=== PATIENT | female | born 1990 | race Caucasian/White ===

== ENCOUNTER 2017-03-31 11:02 | Outpatient (CLI) | payer MEDICAID ==
[~2017-03-31] VITALS: Ht 153.7 cm; Wt 70.5 kg
[2017-03-31 11:07] VITALS: Ht 153.7 cm; Wt 70.5 kg
[2017-03-31] MEDS ORDERED: PRENAT PO (11:09)
[2017-03-31] MEDS ORDERED: FERR325C PO (11:10)
[2017-03-31 11:17] VITALS: BP 102/58; PULSE 109; RESP 20
--- NOTE | 2017-03-31 11:39 | RADRPT ---
PROCEDURE: US OB biophysical profile. CLINICAL INDICATION: decreased movements, labor TECHNIQUE: Multiple sonographic images of the pelvis were obtained. The images were reviewed on a PACS workstation. COMPARISON: No prior studies are available for comparison. FINDINGS: There is a single viable intrauterine gestation. Cardiac activity is present with 142 beats per min [place]. There is a vertex presentation. The placenta is anterior. There is no evidence of placental abruption. There is a normal amount of amniotic fluid with an TREVER = 11.7 cm. Biophysical profile: movement 2/2 tone 2/2. breathing 2/2 TREVER 2/2 Total 03/28 RPTAT: AA . IMPRESSION: Normal biophysical profile. . .Kamlesh Villa MD, Date Time Electronically viewed and signed by .Kamlesh Villa MD, MD on 03/31/2017 11:38 .S/
[2017-03-31] MEDS ORDERED: TERBUTALINE 1 MG/ML INJ SC PRN (12:00)
[2017-03-31 12:17] LABS: ADD UMIC YES; UR ASCORBIC ACID 20 mg/dL (NEGATIVE); UR BACTERIA FEW /HPF (NONE SEEN); UR BILIRUBIN (Dip) NEGATIVE (NEGATIVE); UR BLOOD (Dip) NEGATIVE (NEGATIVE); UR CLARITY CLOUDY (CLEAR); UR COLOR YELLOW (YELLOW); UR GLUCOSE (Dip) NEGATIVE (NEGATIVE); UR KETONES (Dip) NEGATIVE (NEGATIVE); UR LEUKOCYTE ESTERASE (Dip) NEGATIVE Leu/ul (NEGATIVE); UR MUCUS FEW /HPF (NONE SEEN); UR NITRITE (Dip) NEGATIVE (NEGATIVE); UR RBC 1 /HPF (0-5); UR SPECIFIC GRAVITY (Dip) 1.012 (1.003-1.030); UR SQUAMOUS EPITHELIAL CELL MANY /HPF (FEW); UR TOTAL PROTEIN (Dip) NEGATIVE (NEGATIVE); UR UROBILINOGEN (Dip) NEGATIVE (NEGATIVE)
--- NOTE | 2017-03-31 13:34 | RADRPT ---
PROCEDURE: Limited obstetric ultrasound CLINICAL INDICATION: Pain TECHNIQUE: Multiple transverse and longitudinal grayscale images of the pelvis were obtained camejo sabdominally and transvaginally.. COMPARISON: same day FINDINGS: The cervix has a length of 3.8 cm. There is a trace amount of fluid within the cervix. RPTAT: AA IMPRESSION: Cervix length measures 3.8 cm. .Kamlesh Villa MD, MD Date Time Electronically viewed and signed by .Kamlesh Villa MD, on 03/31/2017 13:34 .S/
[2017-03-31 13:40] LABS: BASOPHILS % 0.3 % (0.0-2.0); EOSINOPHILS # 0.1 10^3/ul (0.0-0.5); EOSINOPHILS % 0.7 % (0.0-7.0); HEMATOCRIT 38.4 % (37.0-47.0); HEMOGLOBIN 12.8 g/dl (12.0-16.0); LYMPHOCYTES # 2.2 10^3/ul (0.8-2.9); LYMPHOCYTES % 23.7 % (15.0-51.0); MEAN CORPUSCULAR HEMOGLOBIN 29.8 pg (29.0-33.0); MEAN CORPUSCULAR HGB CONC 33.3 g/dl (32.0-37.0); MEAN CORPUSCULAR VOLUME 89.5 fl (82.0-101.0); MEAN PLATELET VOLUME 10.3 fl (7.4-10.4); MONOCYTE # 0.8 10^3/ul (0.3-0.9); MONOCYTES % 8.8 % (0.0-11.0); NEUTROPHIL # 6.1 10^3/ul (1.6-7.5); NEUTROPHILS % 63.9 % (39.0-77.0); PLATELET COUNT 226 10^3/UL (140-415); RED BLOOD COUNT 4.29 10^6/ul (4.20-5.40); RED CELL DISTRIBUTION WIDTH 14.9 % (11.5-14.5); WHITE BLOOD COUNT 9.5 10^3/ul (4.8-10.8)
[2017-03-31] MEDS ORDERED: LACTATED RINGER'S 1,000 ML IV* SCH (14:00)
--- NOTE | 2017-03-31 14:48 | PN ---
Triage Information Date/Time March 31, 2017 Reason for visit: DFM Weeks of Gestation 32 weeks and 1 day /Para 1 para 0 Diabetes: none Hypertention: none Additional information 17 from clinic with patient complaining of decreased movement and onset of uterine contraction night prior to admission Patient received IV hydration and subcutaneous terbutaline with total removal of her symptoms Objective Vital Signs Date Time Temp Pulse Resp B/P Pulse Ox O2 Delivery O2 Flow Rate FiO2 03/31/17 11:17 98.2 109 20 102/58 97 Room Air Heart Rate: 140's Heart Rate Comments Reactive Contractions: 6-10 Minutes Apart Exam Cervix is long and closed Results/Medications Result Diagram: 03/31/17 1330 Results 24 hrs Laboratory Tests Test 03/31/17 11:14 03/31/17 13:30 Urine Color YELLOW Urine Clarity CLOUDY A Urine pH 7.0 Urine Specific [place] 1.012 Urine Ketones NEGATIVE Urine Nitrite NEGATIVE Urine Bilirubin NEGATIVE Urine Urobilinogen NEGATIVE Urine Leukocyte Esterase NEGATIVE Urine Microscopic RBC 1 Urine Microscopic WBC 3 Urine Squamous Epithelial Cells MANY A Urine Bacteria FEW A Urine Mucus FEW A Urine Hemoglobin NEGATIVE Urine Glucose NEGATIVE Urine Total Protein NEGATIVE White Blood Count 9.5 Red Blood Count 4.29 Hemoglobin 12.8 Hematocrit 38.4 Mean Corpuscular Volume 89.5 Mean Corpuscular Hemoglobin 29.8 Mean Corpuscular Hemoglobin Concent 33.3 Red Cell Distribution Width 14.9 H Platelet Count 226 Mean Platelet Volume 10.3 Neutrophils % 63.9 Lymphocytes % 23.7 Monocytes % 8.8 Eosinophils % 0.7 Basophils % 0.3 Nucleated Red Blood Cells % 0.0 Neutrophils # 6.1 Lymphocytes # 2.2 Monocytes # 0.8 Eosinophils # 0.1 Basophils # 0.0 Nucleated Red Blood Cells # 0.0 Medications Current Medications Terbutaline Sulfate 0.25 mg 0.25 mg PRN PRN SC CONTRACTION Last administered on 03/31/17t 13:10; Admin Dose 0.25 MG; Start 03/31/17 at 12:00 Lactated Ringer's (Lr) 1,000 ml @ 125 mls/hr Q8H IV* ; Start 03/31/17 at 14:00 Imaging Results Cervix length measures 3.8 cm. Biophysical profile: movement 2/2 tone 2/2. breathing 2/2 TREVER 2/2 Total 8/8 RPTAT: AA . IMPRESSION: Normal biophysical profile. Disposition: Discharge Assessment/Plan After receiving subcutaneous terbutaline and IV hydration, contractions totally stopped Will DC patient home on bed and pelvic rest To clinic as scheduled Patient was recommended if the symptoms come back to return to hospital immediately GM MCKEE MD Mar 31, 2017 14:48
[2017-03-31 15:12] LABS: BARBITURATES Negative (NEGATIVE); BENZODIAZEPINES Negative (NEGATIVE); CANNABINOIDS Negative (NEGATIVE); COCAINE Negative (NEGATIVE); OPIATES Negative (NEGATIVE)
--- NOTE | 2017-03-31 15:21 | TRIAGE ---
OB Triage Datetime Report Generated by CPN: 03/31/2017 15:21 Datetime: 03/31/2017 14:51 Stage of : OB Triage Datetime: 03/31/2017 14:28 Labor Evaluation Frequency: IRREG Monitor Mode: External Duration (sec)2399: 50-70 Quality: Mild Pattern: Normal: <= 5 Contractions in 10 Minutes Resting Tone [place]: Relaxed Contraction Comments: NST REACTIVE FOR GESTATIONAL AGE Heart Rate FHR Baseline Rate: 145 Monitor Mode: External US Variability: Moderate 6-25 bpm Accelerations: 15X15 Decelerations: None Category: Category I Datetime: 03/31/2017 13:59 Vaginal Exam Membrane Status: Intact Datetime: 03/31/2017 12:58 Labor Evaluation Frequency: 0 Monitor Mode: External Duration (sec)2399: 0 Pattern: Normal: <= 5 Contractions in 10 Minutes Heart Rate FHR Baseline Rate: 135 Monitor Mode: External US Variability: Moderate 6-25 bpm Accelerations: 15X15 Decelerations: None Category: Category I Datetime: 03/31/2017 11:59 Labor Evaluation Frequency: IRREG Monitor Mode: External Duration (sec)2399: 50-80 Quality: Mild Pattern: Normal: <= 5 Contractions in 10 Minutes Resting Tone [place]: Relaxed Heart Rate FHR Baseline Rate: 145 Monitor Mode: External US Variability: Moderate 6-25 bpm Accelerations: 15X15 Decelerations: None Category: Category I Datetime: 03/31/2017 11:21 Stage of : OB Triage Assessment Type: Triage Maternal Assessment Level of Consciousness: Fully Conscious DTR's/Clonus: DTRs 2+; No Clonus Headache: Denies Blurred Vision: No Respiratory Effort: Unlabored; Regular Rhythm; Equal Expansion Breath Sounds, Left: Clear and Equal Breath Sounds, Right: Clear and Equal Nausea/Vomiting: Denies RUQ Epigastric Pain: Denies Lower Extremities Edema: None Degree: None Upper Extremities Edema: None Degree: None Facial Edema: None Temperature Route: Axillary Fall Risk Assessment History of Falling: (0) No Secondary Diagnosis: (0) No Ambulatory Aid: (0) Bedrest/Nurse Assist IV Therapy: (0) No Gait: (0) Normal/Bedrest/Immobile Mental Status: (0) Oriented to Own Ability Fall Score: 0 Fall Risk Score Definition: No Risk: No action required Pain Assessment Pain Scale: 7 Pain Presence: Intermittent Pain Type: Contraction Pain Location: Abdomen; Back Pain Goal: 2 Pain Relief Measures: Comfort Measures Datetime: 03/31/2017 11:19 Time of Arrival: 03/31/2017 10:55 EGA: 32.1 Arrived By: Ambulatory Arrived From: Dr. Hanson Chief Complaint: R/O PTL; DECREASED FM Vaginal Bleeding: None Vaginal Discharge: Denies Recent Sexual Intercouse: Denies Time Provider Notified: 03/31/2017 11:54 Provider Notified: DR. BEE Initial Plan: NST AND CALL
== END 2017-03-31 15:22 | disposition home or self-care (01) ==
LOC: OBT 11:02 → L-D 11:04 → OBT 15:22
PROVIDERS: ATTEND Obstetrics & Gynecology
DX: O36.8130 Decreased fetal movements, third trimester, not applicable or unspecified (principal); Z3A.32 32 weeks gestation of pregnancy
CPT/HCPCS: 36415; 76817; 76818; 80307; 81001; 85025; 96360; 96361; 96372; J3105; J7120; Z7500; G0463

== ENCOUNTER 2017-05-07 00:31 | Outpatient (CLI) | payer MEDICAID ==
[~2017-05-07] VITALS: Ht 154.9 cm; Wt 74.5 kg
[~2017-05-07 00:31] MED LIST: FERR325C PO; PRENAT PO
[2017-05-07 00:51] VITALS: Ht 154.9 cm; Wt 74.5 kg
[2017-05-07 01:26] VITALS: BP 106/57; PULSE 96; RESP 18
[2017-05-07] MEDS ORDERED: CALC-143 PO (02:26)
[2017-05-07 03:08] LABS: ADD UMIC YES; UR AMORPHOUS CRYSTAL FEW /HPF (NONE SEEN); UR ASCORBIC ACID 20 mg/dL (NEGATIVE); UR BACTERIA MANY /HPF (NONE SEEN); UR BILIRUBIN (Dip) NEGATIVE (NEGATIVE); UR BLOOD (Dip) NEGATIVE (NEGATIVE); UR CLARITY CLOUDY (CLEAR); UR COLOR YELLOW (YELLOW); UR GLUCOSE (Dip) 1+ mg/dL (NEGATIVE); UR KETONES (Dip) NEGATIVE (NEGATIVE); UR LEUKOCYTE ESTERASE (Dip) NEGATIVE Leu/ul (NEGATIVE); UR MUCUS FEW /HPF (NONE SEEN); UR NITRITE (Dip) NEGATIVE (NEGATIVE); UR RBC 1 /HPF (0-5); UR SPECIFIC GRAVITY (Dip) 1.012 (1.003-1.030); UR SQUAMOUS EPITHELIAL CELL MANY /HPF (FEW); UR TOTAL PROTEIN (Dip) NEGATIVE (NEGATIVE); UR UROBILINOGEN (Dip) NEGATIVE (NEGATIVE)
--- NOTE | 2017-05-07 03:56 | RADRPT ---
PROCEDURE: OB ultrasound for biophysical profile CLINICAL INDICATION: labor. Biophysical profile. TECHNIQUE: Multiple sonographic images of the pelvis were obtained. Transabdominal view of the gr avid uterus are available for review. The images were reviewed on a PACS workstation. COMPARISON: 05/04/2017 FINDINGS: There is a single live intrauterine gestation. The fetus in the cephalic presentation. The ca rdiac motion measures 140 beats per minute. The placenta is anterior, grade II. The estimated gestational age is 37 weeks, 3 days. The EDDIE is 05/25/2017. breathing movement = 2/2 tone = 2/2 motion = 2/2 TREVER = 2/2 TREVER = 11.8 cm Single live intrauterine with cardiac activity. IMPRESSION: 1. Single viable intrauterine gestation. 2. Biophysical profile = /8. 3. TREVER = 11.8 cm. RPTAT: HCNS Physician Bryn Date Time Electronically viewed and signed by Physician Bryn on 05/07/2017 03:55 CS/
[2017-05-07 04:04] LABS: BASOPHILS % 0.4 % (0.0-2.0); EOSINOPHILS # 0.1 10^3/ul (0.0-0.5); EOSINOPHILS % 1.4 % (0.0-7.0); HEMATOCRIT 36.4 % (37.0-47.0); HEMOGLOBIN 12.1 g/dl (12.0-16.0); LYMPHOCYTES # 1.7 10^3/ul (0.8-2.9); LYMPHOCYTES % 24.5 % (15.0-51.0); MEAN CORPUSCULAR HEMOGLOBIN 29.7 pg (29.0-33.0); MEAN CORPUSCULAR HGB CONC 33.2 g/dl (32.0-37.0); MEAN CORPUSCULAR VOLUME 89.2 fl (82.0-101.0); MONOCYTE # 0.8 10^3/ul (0.3-0.9); MONOCYTES % 11.5 % (0.0-11.0); NEUTROPHIL # 4.3 10^3/ul (1.6-7.5); NEUTROPHILS % 60.5 % (39.0-77.0); PLATELET COUNT 204 10^3/UL (140-415); RED BLOOD COUNT 4.08 10^6/ul (4.20-5.40); WHITE BLOOD COUNT 7.1 10^3/ul (4.8-10.8)
--- NOTE | 2017-05-07 04:14 | PN ---
Triage Information Date/Time Reason for visit: Complaining of contractions/leaking fluid and generalized itching Weeks of Gestation 37 weeks and 3 days of gestation /Para 1 para 0 Diabetes: none Hypertention: none Objective Vital Signs Date Time Temp Pulse Resp B/P Pulse Ox O2 Delivery O2 Flow Rate FiO2 05/07/17 01:26 98.1 96 18 106/57 Room Air Heart Rate: 140's Heart Rate Comments Reactive Contractions: None Results/Medications Result Diagram: 05/07/17 0320 Results 24 hrs Laboratory Tests Test 05/07/17 02:00 05/07/17 03:20 Urine Color YELLOW Urine Clarity CLOUDY A Urine pH 7.0 Urine Specific [place] 1.012 Urine Ketones NEGATIVE Urine Nitrite NEGATIVE Urine Bilirubin NEGATIVE Urine Urobilinogen NEGATIVE Urine Leukocyte Esterase NEGATIVE Urine Microscopic RBC 1 Urine Microscopic WBC 1 Urine Squamous Epithelial Cells MANY A Urine Amorphous Crystals FEW A Urine Bacteria MANY A Urine Mucus FEW A Urine Hemoglobin NEGATIVE Urine Glucose 1+ H Urine Total Protein NEGATIVE White Blood Count 7.1 # Red Blood Count 4.08 L Hemoglobin 12.1 Hematocrit 36.4 L Mean Corpuscular Volume 89.2 Mean Corpuscular Hemoglobin 29.7 Mean Corpuscular Hemoglobin Concent 33.2 Red Cell Distribution Width 15.0 H Platelet Count 204 Mean Platelet Volume 11.0 H Neutrophils % 60.5 Lymphocytes % 24.5 Monocytes % 11.5 H Eosinophils % 1.4 Basophils % 0.4 Nucleated Red Blood Cells % 0.0 Neutrophils # 4.3 Lymphocytes # 1.7 Monocytes # 0.8 Eosinophils # 0.1 Basophils # 0.0 Nucleated Red Blood Cells # 0.0 Imaging Results PROCEDURE: OB ultrasound for biophysical profile CLINICAL INDICATION: labor. Biophysical profile. TECHNIQUE: Multiple sonographic images of the pelvis were obtained. Transabdominal view of the gravid uterus are available for review. The images were reviewed on a PACS workstation. COMPARISON: 05/04/2017 FINDINGS: There is a single live intrauterine gestation. The fetus in the cephalic presentation. The cardiac motion measures 140 beats per minute. The placenta is anterior, grade II. The estimated gestational age is 37 weeks, 3 days. The EDDIE is 05/25/2017. breathing movement = 2/2 tone = 2/2 motion = 2/2 TREVER = 2/2 TREVER = 11.8 cm Single live intrauterine with cardiac activity. IMPRESSION: 1. Single viable intrauterine gestation. 2. Biophysical profile = 8/8. 3. TREVER = 11.8 cm. RPTAT: HCNS Max Cruz Physician Date Time Electronically viewed and signed by Max Cruz Physician on 05/07/2017 03: 55 CS/ CC: CHARLOTTE BUCIO MD Disposition: Discharge Assessment/Plan Patient instructed to use Benadryl [id number] for itching She was counseled to follow-up with her [facility] on Monday CHARLOTTE BUCIO MD May 07, 2017 04:14
[2017-05-07 04:33] LABS: BILIRUBIN,INDIRECT 0.1 mg/dl (0-1.1); BILIRUBIN,TOTAL 0.1 mg/dl (0.2-1.3); CALCIUM 9.7 mg/dl (8.4-10.2); CREATININE 0.56 mg/dl (0.44-1.00); POTASSIUM 3.8 mmol/L (3.5-5.1)
--- NOTE | 2017-05-07 07:27 | TRIAGE ---
OB Triage Datetime Report Generated by CPN: 05/07/2017 07:27 Datetime: 05/07/2017 00:30 Time of Arrival: 05/07/2017 00:20 EGA: 37.3 Arrived By: Wheelchair Arrived From: Home Chief Complaint: UC's, Low abdominal pain, itchy. Movement: Present Contractions: Denies/Absent Rupture of Membranes: Denies Vaginal Bleeding: None Vaginal Discharge: Denies Recent Sexual Intercouse: Denies Abdominal Trauma: Not Applicable Initial Plan: EFM X2, BPP, CBC, CMP, UA, bile acids Datetime: 03/31/2017 11:21 Fall Risk Assessment Fall Score: 0 Fall Risk Score Definition: No Risk: No action required Datetime: 03/31/2017 11:19 EGA: 32.1
== END 2017-05-07 04:35 | disposition home or self-care (01) ==
LOC: OBT 00:31 → L-D 00:32 → OBT 04:35
PROVIDERS: ATTEND Obstetrics & Gynecology
DX: O26.893 Other specified pregnancy related conditions, third trimester (principal); Z3A.37 37 weeks gestation of pregnancy; R10.9 Unspecified abdominal pain
CPT/HCPCS: 76818; 80053; 81001; 83789; 85025; Z7500; G0463

== ENCOUNTER 2017-05-20 01:00 | Outpatient (CLI) | payer MEDICAID ==
[~2017-05-20] VITALS: Ht 156.2 cm; Wt 75.4 kg
[~2017-05-20 01:00] MED LIST changes: +CALC-143 PO
[2017-05-20 01:13] VITALS: Ht 156.2 cm; Wt 75.4 kg
[2017-05-20 01:14] VITALS: BP 112/61; PULSE 105; RESP 20
--- NOTE | 2017-05-20 02:50 | RADRPT ---
PROCEDURE: Limited OB ultrasound CLINICAL INDICATION: Rupture of membranes. TECHNIQUE: Sonographic evaluation to assess the amniotic fluid index was performed. Transabdomina l imaging of the gravid uterus was performed. COMPARISON: 05/07/2017. FINDINGS: A single live intrauterine in cephalic presentation is identified. The heart rate me asures 179 bpm. The amniotic -fluid index equals approximately 9.3 cm, within normal limits. There i s an anterior placenta, grade 3. IMPRESSION: 1. Amniotic fluid index: 9.3 cm. RPTAT: HTAR .Kamlesh Cullen MD, Date Time Electronically viewed and signed by .Kamlesh Cullen MD, on 05/20/2017 02:50 .R/
--- NOTE | 2017-05-20 05:13 | PN ---
Triage Information Date/Time Reason for visit: Weeks of Gestation 39w 2d /Para Additional information Patient with N/V, LOF, UCs Objective Vital Signs Date Time Temp Pulse Resp B/P Pulse Ox O2 Delivery O2 Flow Rate FiO2 05/20/17 01:14 97.9 105 20 112/61 Room Air Heart Rate Comments reactive Contractions: 6-10 Minutes Apart Exam SVE: 0/40/-3 ROM plus negative Results/Medications Results 24 hrs Laboratory Tests Test 05/20/17 01:00 Membranes Rupture NEGATIVE Imaging Results TREVER 9.3cm Disposition: Discharge Assessment/Plan 26 y/o at 39w 2d with N/V, UCs, LOF -no e/o SROM or active labor -rx for zofran given -labor precautions -f/u OB MOHINI SUERO May 20, 2017 05:13
--- NOTE | 2017-05-20 05:41 | TRIAGE ---
OB Triage Datetime Report Generated by CPN: 05/20/2017 05:41 Datetime: 05/20/2017 04:44 Stage of : OB Triage Labor Evaluation Frequency: occasional Monitor Mode: External Duration (sec)2399: 40-120 Quality: Mild Resting Tone [place]: Relaxed Heart Rate FHR Baseline Rate: 140 Monitor Mode: External US Variability: Moderate 6-25 bpm Accelerations: 15X15 Decelerations: None Category: Category I Datetime: 05/20/2017 03:16 Stage of : OB Triage Datetime: 05/20/2017 03:01 Stage of : OB Triage Labor Evaluation Frequency: x3 Monitor Mode: External Duration (sec)2399: 80-140 Quality: Mild Resting Tone [place]: Relaxed Heart Rate FHR Baseline Rate: 140 Monitor Mode: External US Variability: Marked >25 bpm Accelerations: 15X15 Decelerations: Variable Category: Category II Datetime: 05/20/2017 02:07 Stage of : OB Triage Maternal Assessment Level of Consciousness: Fully Conscious DTR's/Clonus: DTRs 2+; No Clonus Headache: Denies Breath Sounds, Left: Clear and Equal Breath Sounds, Right: Clear and Equal Nausea/Vomiting: Denies RUQ Epigastric Pain: Denies Labor Evaluation Frequency: NONE Monitor Mode: External Heart Rate FHR Baseline Rate: 150 Monitor Mode: External US Variability: Moderate 6-25 bpm Accelerations: 15X15 Decelerations: None Category: Category I Pain Assessment Pain Scale: 4 Pain Presence: Intermittent Pain Type: Contraction Pain Location: Abdomen Pain Goal: 3 Nitrazine: Negative Datetime: 05/20/2017 01:42 Stage of : OB Triage Comments: EFM OFF. U/S TECH AT BEDSIDE FOR TREVER. Datetime: 05/20/2017 01:30 Stage of : OB Triage Datetime: 05/20/2017 01:25 Stage of : OB Triage Vaginal Exam Dilatation (cms): 0.0 Effacement (%): 40 Station: -3 Exam By: MICHELEL DANGELO Pool: Negative Nitrazine: Negative Datetime: 05/20/2017 01:18 Stage of : OB Triage Maternal Assessment Level of Consciousness: Fully Conscious DTR's/Clonus: DTRs 2+; No Clonus Headache: Denies Blurred Vision: No Respiratory Effort: Unlabored; Regular Rhythm; Equal Expansion Breath Sounds, Left: Clear and Equal Breath Sounds, Right: Clear and Equal Nausea/Vomiting: Denies RUQ Epigastric Pain: Denies Lower Extremities Edema: Bilateral Lower Extremities Degree: Pitting Upper Extremities Edema: None Facial Edema: None Temperature Route: Oral Fall Risk Assessment History of Falling: (0) No Secondary Diagnosis: (0) No Ambulatory Aid: (0) Bedrest/Nurse Assist IV Therapy: (0) No Gait: (0) Normal/Bedrest/Immobile Mental Status: (0) Oriented to Own Ability Fall Score: 0 Fall Risk Score Definition: No Risk: No action required Labor Evaluation Frequency: X1 Monitor Mode: External Duration (sec)2399: 70 Quality: Moderate Heart Rate FHR Baseline Rate: 140 Monitor Mode: External US Variability: Moderate 6-25 bpm Accelerations: 15X15 Decelerations: None Category: Category I Pain Assessment Pain Scale: 4 Pain Presence: Intermittent Pain Type: Contraction Pain Location: Abdomen Pain Goal: 3 Nitrazine: Negative Datetime: 05/20/2017 01:17 Time of Arrival: 05/20/2017 00:54 EGA: 39.2 Arrived By: Ambulatory Arrived From: Home Chief Complaint: PT C/O VOMITING AND LEAKING FLUID Movement: Present Contractions: Irregular Time Contractions Began: 05/19/2017 03:00 Rupture of Membranes: Denies Vaginal Bleeding: None Vaginal Discharge: Denies Recent Sexual Intercouse: Denies Abdominal Trauma: Not Applicable Time Provider Notified: 05/20/2017 01:30 Provider Notified: DR SUERO Initial Plan: TOCO AND EFM, NITRAZINE, SVE AND NOTIFY MD. ROM+, TREVER Datetime: 05/07/2017 04:00 Stage of : OB Triage Labor Evaluation Frequency: None Monitor Mode: External Pattern: Normal: <= 5 Contractions in 10 Minutes Heart Rate FHR Baseline Rate: 130 Monitor Mode: External US FHR Baseline Changes: No Baseline Change Variability: Moderate 6-25 bpm Accelerations: 15X15 Decelerations: None Datetime: 05/07/2017 03:56 Stage of : OB Triage Labor Evaluation Frequency: occasional Monitor Mode: External Duration (sec)2399: 40-50 Quality: Mild Resting Tone [place]: Relaxed Heart Rate FHR Baseline Rate: 140 Monitor Mode: External US Variability: Moderate 6-25 bpm Accelerations: 15X15 Decelerations: None Category: Category I Datetime: 05/07/2017 03:00 Stage of : OB Triage Labor Evaluation Frequency: None Monitor Mode: External Pattern: Normal: <= 5 Contractions in 10 Minutes Heart Rate FHR Baseline Rate: 130 Monitor Mode: External US FHR Baseline Changes: No Baseline Change Variability: Moderate 6-25 bpm Accelerations: 15X15 Decelerations: None Category: Category I Datetime: 05/07/2017 02:00 Stage of : OB Triage Labor Evaluation Frequency: X2 Monitor Mode: External Duration (sec)2399: 60-80 Quality: Mild Pattern: Normal: <= 5 Contractions in 10 Minutes Heart Rate FHR Baseline Rate: 130 Monitor Mode: External US FHR Baseline Changes: No Baseline Change Variability: Moderate 6-25 bpm Accelerations: 15X15 Decelerations: None Category: Category I Datetime: 05/07/2017 01:04 Assessment Type: Triage Maternal Assessment Level of Consciousness: Fully Conscious DTR's/Clonus: DTRs 2+; No Clonus Headache: Denies Blurred Vision: No Respiratory Effort: Unlabored; Regular Rhythm; Equal Expansion Breath Sounds, Left: Clear and Equal Breath Sounds, Right: Clear and Equal Nausea/Vomiting: Denies RUQ Epigastric Pain: Denies Lower Extremities Edema: None Degree: None Upper Extremities Edema: None Degree: None Facial Edema: None Fall Risk Assessment History of Falling: (0) No Secondary Diagnosis: (0) No Ambulatory Aid: (0) Bedrest/Nurse Assist IV Therapy: (0) No Gait: (0) Normal/Bedrest/Immobile Mental Status: (0) Oriented to Own Ability Fall Score: 0 Fall Risk Score Definition: No Risk: No action required FHR Baseline Changes: No Baseline Change Datetime: 05/07/2017 00:30 EGA: 37.3 Datetime: 03/31/2017 11:21 Fall Score: 0 Fall Risk Score Definition: No Risk: No action required Datetime: 03/31/2017 11:19 EGA: 32.1
[2017-05-25] MEDS ORDERED: IBUP800T25 PO (17:59)
== END 2017-05-20 04:55 | disposition home or self-care (01) ==
LOC: OBT 01:00 → L-D 01:02 → OBT 04:55
PROVIDERS: ATTEND Obstetrics & Gynecology
DX: O21.0 Mild hyperemesis gravidarum (principal); O62.9 Abnormality of forces of labor, unspecified; Z3A.39 39 weeks gestation of pregnancy
CPT/HCPCS: 76815; 84112; Z7500; G0463

== ENCOUNTER 2017-05-22 09:44 | Inpatient (IN) | END 2017-05-26 18:17 | disposition home or self-care (01) | DRG 766 | DX: O76 Abnormality in fetal heart rate and rhythm complicating labor and delivery (principal); Z37.0 Single live birth; Z3A.39 39 weeks gestation of pregnancy ==